=== PATIENT | male | born 1955 | race Two or more races ===

== ENCOUNTER 2020-12-29 20:24 | Inpatient (IN) | payer MEDICARE, MEDICAID ==
[~2020-12-29] VITALS: Ht 177.8 cm; Wt 104.5 kg
[~2020-12-29 20:24] MED LIST: CALCIUM CHLOR(10%) 100MG/ML 10ML SYRINGE IV ONE; EPINEPHrine HCL 1 MG/10 ML SYRG IV ONE; SODIUM BICARBONATE 8.4% INJ 50ML SYRINGE IV ONE
[2020-12-29 21:42] LABS: Basophils # (auto) 0.1 10 ^3/uL (0-0.2); Basophils % (auto) 0.5 % (0.0-2.0); Eosinophils # (auto) 0.2 10 ^3/uL (0-0.8); Eosinophils % (auto) 2.1 % (0.0-7.0); Hematocrit 30.3 % (41.0-53.0); Hemoglobin 10.3 g/dL (13.5-17.5); Lymphocytes # (auto) 1.6 10 ^3/uL (0.4-5.4); Lymphocytes % (auto) 14.9 % (10.0-50.0); Mean Corpuscular Hemoglobin 33.1 pg (28.0-32.0); Mean Corpuscular Hgb Conc. 33.9 g/dL (32.0-36.0); Mean Corpuscular Volume 97.7 fL (80.0-100.0); Monocytes # (auto) 0.8 10 ^3/uL (0-1.3); Monocytes % (auto) 7.3 % (0.0-12.0); Neutrophils # (auto) 8.1 10 ^3/uL (1.6-8.6); Neutrophils % (auto) 75.2 % (37.0-80.0); Platelet Count (auto) 352 10^3/uL (140-450); Red Cell Distribution Width 12.8 % (11.8-14.3); White Blood Cell 10.7 10^3/uL (4.4-10.8)
[2020-12-29 21:59] LABS: INR 1.01 (0.9-1.15); Partial Thromboplastin Time 32.6 sec (23.0-31.2)
[2020-12-29 22:00] LABS: Albumin 3.1 g/dL (3.4-5.0); BUN/Creatinine Ratio 4.1; Calcium 8.5 mg/dL (8.5-10.1); Magnesium 3.2 mg/dL (1.6-2.6); Potassium 5.1 mmol/L (3.5-5.1)
[2020-12-29 22:05] LABS: Bilirubin, Total 0.4 mg/dL (0.2-1.0); Total Protein 8.6 g/dL (6.4-8.2)
[2020-12-29] MEDS ORDERED: ASPirin 81 mg TAB PO ONE (22:15)
[2020-12-29] MEDS ORDERED: HEPARIN SODIUM (PORCINE) 5000 UNITS/ML 1ML VIAL IV ONE (22:30)
[2020-12-29] MEDS ORDERED: CLOPIDOGREL BISULFATE 75 MG TAB PO ONE (22:30)
[2020-12-29] MEDS: HEPARIN DRIP/D5W 100UNITS/ML 250 ML IV SCH (23:24)
[2020-12-29] MEDS ORDERED: CLOPIDOGREL 300 MG TAB ONE (23:37)
[2020-12-29] MEDS ORDERED: CLOPIDOGREL BISULFATE 75 MG TAB ONE (23:38)
[2020-12-30] MEDS ORDERED: NITROGLYCERIN 0.4 MG SL TAB SL PRN
[2020-12-30] MEDS ORDERED: MORPHINE SULF INJ 2 MG/ML SYRINGE 1ML IV PRN
[2020-12-30] MEDS ORDERED: ACETAMINOPHEN 325 MG TAB PO PRN
[2020-12-30] MEDS ORDERED: ONDANSETRON HCL 4 MG/2 ML VIAL IV PRN
[2020-12-30] MEDS ORDERED: TEMAZEPAM 15 MG CAP PO PRN
[2020-12-30 01:23] VITALS: BP 93/61
[2020-12-30 05:00] VITALS: BP 97/60
[2020-12-30 05:54] LABS: Basophils # (auto) 0.1 10 ^3/uL (0-0.2); Basophils % (auto) 0.6 % (0.0-2.0); Eosinophils # (auto) 0.1 10 ^3/uL (0-0.8); Eosinophils % (auto) 1.1 % (0.0-7.0); Hematocrit 29.3 % (41.0-53.0); Hemoglobin 9.8 g/dL (13.5-17.5); Lymphocytes # (auto) 1.5 10 ^3/uL (0.4-5.4); Lymphocytes % (auto) 13.1 % (10.0-50.0); Mean Corpuscular Hemoglobin 32.8 pg (28.0-32.0); Mean Corpuscular Hgb Conc. 33.5 g/dL (32.0-36.0); Mean Corpuscular Volume 97.9 fL (80.0-100.0); Monocytes # (auto) 0.6 10 ^3/uL (0-1.3); Monocytes % (auto) 5.2 % (0.0-12.0); Neutrophils # (auto) 9.4 10 ^3/uL (1.6-8.6); Platelet Count (auto) 318 10^3/uL (140-450); Red Blood Cells 2.99 10^6/uL (4.5-5.90); Red Cell Distribution Width 12.9 % (11.8-14.3); White Blood Cell 11.8 10^3/uL (4.4-10.8)
[2020-12-30 06:09] LABS: INR 1.03 (0.9-1.15)
[2020-12-30 06:12] LABS: Potassium 5.5 mmol/L (3.5-5.1)
[2020-12-30 06:23] LABS: Albumin 2.7 g/dL (3.4-5.0); BUN/Creatinine Ratio 4.2; Bilirubin, Total 0.5 mg/dL (0.2-1.0); Calcium 8.2 mg/dL (8.5-10.1); Total Protein 7.4 g/dL (6.4-8.2)
[2020-12-30] MEDS: SODIUM CHLORIDE 0.9% 1,000 ML IV SCH ×2 (06:48→20:18)
[2020-12-30 09:00] VITALS: BP 96/47
[2020-12-30] MEDS ORDERED: DEXTROSE (50%) 50ML SYRG IV PRN (11:15)
[2020-12-30] MEDS: InsuLIN REG 1unit/0.01ml Soln (100units/ml) SC SCH ×2 (11:30→17:00)
[2020-12-30] MEDS: ACCU-CHEK COMFORT CURVE STRIP VI SCH ×3 (11:30→22:36)
[2020-12-30] MEDS: ASPirin 81 mg TAB PO SCH (12:20)
[2020-12-30] MEDS: PANTOPRAZOLE 40 MG TAB PO SCH (12:20)
[2020-12-30 13:00] VITALS: BP 100/56
[2020-12-30 16:16] LABS: INR 1.03 (0.9-1.15)
[2020-12-30 17:00] VITALS: BP 103/59
[2020-12-30 17:03] LABS: Partial Thromboplastin Time 86.3 sec (23.0-31.2)
[2020-12-30] MEDS: HEPARIN DRIP/D5W 100UNITS/ML 250 ML IV SCH (17:08)
[2020-12-30 22:00] VITALS: BP 96/53
[2020-12-30] MEDS ORDERED: ATORVASTATIN 20 MG TAB PO SCH (22:00)
[2020-12-30] MEDS ORDERED: InsuLIN REG 1unit/0.01ml Soln (100units/ml) SC SCH (22:00)
[2020-12-30 23:41] LABS: INR 1.02 (0.9-1.15); Partial Thromboplastin Time 45.4 sec (23.0-31.2)
[2020-12-31 05:00] VITALS: BP 100/56
[2020-12-31 06:17] LABS: INR 1.03 (0.9-1.15); Partial Thromboplastin Time 64.9 sec (23.0-31.2)
[2020-12-31] MEDS: InsuLIN REG 1unit/0.01ml Soln (100units/ml) SC SCH ×3 (06:40→17:00)
[2020-12-31] MEDS: ACCU-CHEK COMFORT CURVE STRIP VI SCH ×4 (06:40→22:00)
[2020-12-31 07:40] VITALS: BP 109/73
[2020-12-31 08:47] VITALS: BP 109/73
[2020-12-31] MEDS ORDERED: CLOPIDOGREL BISULFATE 75 MG TAB PO SCH (10:00)
[2020-12-31] MEDS ORDERED: LACTULOSE 20Gm/30ML SOLN PO ONE (10:30)
[2020-12-31] MEDS: PANTOPRAZOLE 40 MG TAB PO SCH (10:32)
[2020-12-31] MEDS: ASPirin 81 mg TAB PO SCH (10:32)
[2020-12-31 12:21] VITALS: BP 90/58
[2020-12-31 13:17] LABS: Basophils # (auto) 0.1 10 ^3/uL (0-0.2); Basophils % (auto) 0.5 % (0.0-2.0); Eosinophils # (auto) 0.3 10 ^3/uL (0-0.8); Eosinophils % (auto) 2.1 % (0.0-7.0); Hematocrit 25.8 % (41.0-53.0); Hemoglobin 8.6 g/dL (13.5-17.5); Lymphocytes # (auto) 2.3 10 ^3/uL (0.4-5.4); Lymphocytes % (auto) 17.5 % (10.0-50.0); Mean Corpuscular Hemoglobin 32.6 pg (28.0-32.0); Mean Corpuscular Hgb Conc. 33.5 g/dL (32.0-36.0); Mean Corpuscular Volume 97.3 fL (80.0-100.0); Monocytes # (auto) 0.8 10 ^3/uL (0-1.3); Monocytes % (auto) 6.4 % (0.0-12.0); Neutrophils # (auto) 9.6 10 ^3/uL (1.6-8.6); Neutrophils % (auto) 73.5 % (37.0-80.0); Nucleated Red Blood Cells % 0.1 %; Platelet Count (auto) 302 10^3/uL (140-450); Red Blood Cells 2.65 10^6/uL (4.5-5.90); Red Cell Distribution Width 12.7 % (11.8-14.3); White Blood Cell 13.1 10^3/uL (4.4-10.8)
[2020-12-31] MEDS ORDERED: BUMETANIDE 2.5mg/10ml (0.25 mg/ml) INJ IV ONE (14:30)
[2020-12-31 14:46] LABS: INR 1.03 (0.9-1.15)
[2020-12-31] MEDS: HEPARIN DRIP/D5W 100UNITS/ML 250 ML IV SCH ×2 (14:56→18:22)
[2020-12-31 16:30] VITALS: BP 90/58
[2020-12-31 22:00] VITALS: BP 91/60
[2020-12-31] MEDS ORDERED: DOCUSATE SOD 100 MG CAP PO SCH (22:00)
[2021-01-01] MEDS ORDERED: SODIUM CHL 0.9% 1000 ML BAG XX ONE (07:00)
[2021-01-01] MEDS ORDERED: EPOETIN ALFA-EPBX 10,000 UNIT/1ML VIAL SC ONE (21:00)
== END 2020-12-31 22:57 ==
LOC: EDBD 20:24 → ER 20:24 → TELE 23:46 → TELE-WESTW 12-30 01:03 → TELE 12-30 01:06
PROVIDERS: ADMIT Nurse Practitioner; ATTEND Family Medicine
PROC: 5A12012 Performance of Cardiac Output, Single, Manual (ICD-10-PCS; principal; 2020-12-31)
DX: I21.4 Non-ST elevation (NSTEMI) myocardial infarction (principal); N18.6 End stage renal disease; E43 Unspecified severe protein-calorie malnutrition; I50.23 Acute on chronic systolic (congestive) heart failure; N25.81 Secondary hyperparathyroidism of renal origin; D63.1 Anemia in chronic kidney disease; E11.22 Type 2 diabetes mellitus with diabetic chronic kidney disease; E11.40 Type 2 diabetes mellitus with diabetic neuropathy, unspecified; M89.9 Disorder of bone, unspecified; I25.10 Atherosclerotic heart disease of native coronary artery without angina pectoris; I95.9 Hypotension, unspecified; Z20.822 Contact with and (suspected) exposure to COVID-19; E11.51 Type 2 diabetes mellitus with diabetic peripheral angiopathy without gangrene; E87.5 Hyperkalemia; Z99.2 Dependence on renal dialysis; Z83.3 Family history of diabetes mellitus; Z89.512 Acquired absence of left leg below knee; Z68.32 Body mass index [BMI] 32.0-32.9, adult; L97.519 Non-pressure chronic ulcer of other part of right foot with unspecified severity; I11.0 Hypertensive heart disease with heart failure; E11.621 Type 2 diabetes mellitus with foot ulcer; I46.9 Cardiac arrest, cause unspecified
CPT/HCPCS: 36415; 36600; 71045; 73630; 73700; 80053; 82805; 82962; 83735; 83880; 84443; 84484; 85025; 85379; 85610; 85730; 86850; 86900; 86901; 87081; 87426; 92950; 93005; 93306; 93926; 93970; 96361; 96374; A4618; G0378; J2405